=== PATIENT | female | born 1945 | race Two or more races ===

== ENCOUNTER 2023-09-04 18:51 | Inpatient (IN) | payer MEDICARE, OTHER ==
[~2023-09-04] VITALS: Ht 167.6 cm; Wt 47.6 kg
[2023-09-04 22:48] LABS: BASOPHILS % (AUTO) 0.4 % (0.0-2.0); EOSINOPHILS # (AUTO) 0.2 K/uL (0.0-0.7); EOSINOPHILS % (AUTO) 2.4 % (0.0-6.0); HEMATOCRIT 33 % (33-45); HEMOGLOBIN 10.8 g/dL (11.5-14.8); LYMPHOCYTES # (AUTO) 2.5 K/uL (0.8-4.8); MEAN CORPUSCULAR HEMOGLOBIN 34 PG (26.0-33.0); MEAN CORPUSCULAR HGB CONC 33 g/dl (31.0-36.0); MEAN CORPUSCULAR VOLUME 104 fL (82-100); MONOCYTES # (AUTO) 0.6 K/uL (0.1-1.30); MONOCYTES % (AUTO) 8.8 % (2.0-12.0); NEUTROPHILS # (AUTO) 3.3 K/uL (1.8-8.9); NEUTROPHILS % (AUTO) 50.4 % (43.0-81.0); PLATELET COUNT (AUTO) 230 K/uL (150-450); RED BLOOD CELL COUNT(AUTO) 3.19 MIL/uL (4.0-5.2); RED CELL DISTRIBUTION WIDTH 13.5 % (11.5-15.0); WHITE BLOOD COUNT (AUTO) 6.5 K/uL (4.3-11.0)
[2023-09-04 23:07] LABS: ALANINE AMINOTRANSFERASE 34 U/L (12-78); ALBUMIN 3.7 g/dL (3.4-5.0); ALCOHOL, BLOOD < 3 mg/dL (0-10); ALKALINE PHOSPHATASE 64 U/L (46-116); ASPARTATE AMINOTRANSFERASE 18 U/L (15-37); BILIRUBIN,DIRECT 0.1 mg/dL (0.0-0.2); BILIRUBIN,TOTAL 0.2 mg/dL (0.2-1.0); CALCIUM, SERUM 9.3 mg/dL (8.5-10.1); CARBON DIOXIDE 22 mmol/L (21-32); CHLORIDE 108 mmol/L (98-107); CREATININE 1.6 mg/dL (0.6-1.3); GLUCOSE 117 mg/dL (74-106); POTASSIUM 4.8 mmol/L (3.5-5.1); SODIUM SERUM 139 mmol/L (136-145); TOTAL PROTEIN, SERUM 7.9 g/dL (6.4-8.2); UREA NITROGEN, BLOOD 32 mg/dL (7-18)
[2023-09-04 23:09] LABS: ACETAMINOPHEN <10 ug/ml (10-30)
[2023-09-04] MEDS ORDERED: HALOPERIDOL LACTATE INJ 5 MG/ML VIAL ONE (23:29)
[2023-09-04 23:48] LABS: APPEARANCE,URINE CLEAR (CLEAR); BILIRUBIN,URINE NEGATIVE (NEGATIVE); BLOOD, URINE NEGATIVE Ery/uL (NEGATIVE); COLOR,URINE YELLOW (YELLOW); KETONES,URINE NEGATIVE (NEGATIVE); LEUKOCYTE ESTERASE ,URINE 1+ (NEGATIVE); NITRITE, URINE NEGATIVE (NEGATIVE); PH,URINE 5.5 (5.0-8.0); PROTEIN,URINE 1+ mg/dl (NEGATIVE); UGLUCOSE NEGATIVE (NEGATIVE); UROBILINOGEN,URINE 0.2 EU/dL (0.2)
[2023-09-05 00:07] LABS: AMPHETAMINE, URINE NEGATIVE (NEGATIVE); BARBITURATE, URINE NEGATIVE (NEGATIVE); BENZODIAZEPINE, URINE NEGATIVE (NEGATIVE); CANNABINOID, URINE NEGATIVE (NEGATIVE); COCCAINE, URINE NEGATIVE (NEGATIVE); OPIATE, URINE NEGATIVE (NEGATIVE); PHENCYCLIDINE SCREEN,URINE NEGATIVE (NEGATIVE)
[2023-09-05] MEDS: HALOPERIDOL LACTATE INJ 5 MG/ML VIAL IM ONE (00:22)
[2023-09-05 00:44] LABS: ADD URINE CULTURE YES; BACTERIA,URINE Rare /HPF (None Seen); RBC,URINE 0-2 /HPF (0-2); SQUAMOUS EPITHELIAL CELL,UR Rare /HPF (None Seen)
[2023-09-05] MEDS ORDERED: ZOLPIDEM TARTRATE 5 MG TABLET PO PRN (08:30)
[2023-09-05] MEDS ORDERED: MAGNESIUM HYDROXIDE 30 ML UDC PO PRN (08:30)
[2023-09-05] MEDS ORDERED: MAG HYDROX/AL HYDROX/SIMETH 30 ML UDC PO PRN (08:30)
[2023-09-05 08:44] VITALS: BP 116/71; TEMP 99.1; O2SAT 100
[2023-09-05] MEDS ORDERED: ACET650S11 RC (09:00)
[2023-09-05] MEDS ORDERED: MEGE40TA5 PO (09:00)
[2023-09-05] MEDS ORDERED: [UNRECOGNIZED DRUG - OTHER] PO (09:00)
[2023-09-05] MEDS ORDERED: METO25TA20 PO (09:00)
[2023-09-05] MEDS ORDERED: HYDR-4076 PO (09:00)
[2023-09-05] MEDS ORDERED: LISI20TA30 PO (09:00)
[2023-09-05] MEDS ORDERED: LORA2ORA SL (09:00)
[2023-09-05] MEDS ORDERED: QUET25TA PO (09:00)
[2023-09-05] MEDS ORDERED: IPRA3AMP23 IH (09:00)
[2023-09-05] MEDS ORDERED: BISA10SU11 RC (09:00)
[2023-09-05] MEDS ORDERED: TRIH2TAB3 PO (09:00)
[2023-09-05] MEDS ORDERED: ATRO2DRO4 SL (09:00)
[2023-09-05] MEDS ORDERED: ONDA4TAB11 SL (09:00)
[2023-09-05] MEDS: BLOOD SUGAR DIAGNOSTIC 1 EACH STRIP IN ONE (09:18)
[2023-09-05] MEDS: QUETIAPINE FUMARATE 25 MG TABLET PO SCH (12:11)
[2023-09-05] MEDS ORDERED: BISACODYL SUPP (10 MG) 10 MG/SUPP.RECT SUPP.RECT RC PRN (15:00)
[2023-09-05] MEDS ORDERED: ATROPINE SULFATE OPHTH SOLN 15 ML BOTTLE SL PRN (15:00)
[2023-09-05 16:00] VITALS: BP 119/76; TEMP 98.9; O2SAT 99
[2023-09-05] MEDS: MEGESTROL ACETATE 40 MG TABLET PO SCH (16:26)
[2023-09-05] MEDS: METOPROLOL TARTRATE 25 MG TABLET PO SCH (16:26)
[2023-09-05 20:00] VITALS: BP 121/74; TEMP 98.9; O2SAT 99
[2023-09-06 07:22] LABS: BASOPHILS % (AUTO) 0.8 % (0.0-2.0); EOSINOPHILS # (AUTO) 0.1 K/uL (0.0-0.7); EOSINOPHILS % (AUTO) 2.6 % (0.0-6.0); HEMATOCRIT 30 % (33-45); HEMOGLOBIN 10.1 g/dL (11.5-14.8); LYMPHOCYTES # (AUTO) 2.1 K/uL (0.8-4.8); LYMPHOCYTES % (AUTO) 41.1 % (20.0-44.0); MEAN CORPUSCULAR HEMOGLOBIN 34 PG (26.0-33.0); MEAN CORPUSCULAR HGB CONC 33 g/dl (31.0-36.0); MEAN CORPUSCULAR VOLUME 102 fL (82-100); MONOCYTES # (AUTO) 0.5 K/uL (0.1-1.30); NEUTROPHILS # (AUTO) 2.3 K/uL (1.8-8.9); NEUTROPHILS % (AUTO) 46.5 % (43.0-81.0); PLATELET COUNT (AUTO) 181 K/uL (150-450); RED BLOOD CELL COUNT(AUTO) 2.98 MIL/uL (4.0-5.2); RED CELL DISTRIBUTION WIDTH 12.8 % (11.5-15.0)
[2023-09-06 07:41] LABS: ALANINE AMINOTRANSFERASE 34 U/L (12-78); ALBUMIN 2.9 g/dL (3.4-5.0); ALKALINE PHOSPHATASE 51 U/L (46-116); ASPARTATE AMINOTRANSFERASE 24 U/L (15-37); BILIRUBIN,TOTAL 0.2 mg/dL (0.2-1.0); CALCIUM, SERUM 8.5 mg/dL (8.5-10.1); CARBON DIOXIDE 22 mmol/L (21-32); CHLORIDE 110 mmol/L (98-107); CREATININE 1.4 mg/dL (0.6-1.3); GLUCOSE 82 mg/dL (74-106); POTASSIUM 4.6 mmol/L (3.5-5.1); SODIUM SERUM 138 mmol/L (136-145); TOTAL PROTEIN, SERUM 6.5 g/dL (6.4-8.2); UREA NITROGEN, BLOOD 33 mg/dL (7-18)
[2023-09-06 07:45] LABS: CREATININE 1.5 mg/dL (0.6-1.3)
[2023-09-06 08:00] VITALS: BP 119/68; TEMP 98.6; O2SAT 100
[2023-09-06] MEDS: ENSURE ENLIVE 237 ML LIQUID (VANILLA) PO SCH (08:21)
[2023-09-06] MEDS: CEPHALEXIN MONOHYDRATE 250 MG CAPSULE PO SCH (12:02)
[2023-09-06 14:36] LABS: MAGNESIUM 1.9 mg/dL (1.8-2.4); PHOSPHORUS 3.3 mg/dL (2.5-4.9)
[2023-09-06 16:00] VITALS: BP 152/62; TEMP 98.4; O2SAT 99
[2023-09-06 21:29] VITALS: BP 140/77; TEMP 97.9; O2SAT 100
[2023-09-07 08:00] VITALS: BP 171/80; TEMP 98; O2SAT 99
[2023-09-07] MEDS: risperiDONE 1 MG TABLET PO SCH (10:00)
[2023-09-07] MEDS: OLANZAPINE 10 MG VIAL IM ONE (10:46)
[2023-09-07 16:00] VITALS: BP 128/56; TEMP 98.8; O2SAT 98
[2023-09-07 20:03] VITALS: BP 154/67; TEMP 98.4; O2SAT 98
[2023-09-08 00:06] LABS: PTH, INTACT 54 pg/mL (15-65)
[2023-09-08] MEDS: LORAZEPAM 1 MG TABLET PO PRN (03:36)
[2023-09-08 08:00] VITALS: BP 130/64; TEMP 97.8; O2SAT 98
[2023-09-08 08:09] LABS: *SPE A/G RATIO 0.9 (0.7-1.7); *SPE ALBUMIN 2.7 g/dL (2.9-4.4); *SPE ALPHA-1-GLOBULIN 0.2 g/dL (0.0-0.4); *SPE ALPHA-2-GLOBULIN 0.9 g/dL (0.4-1.0); *SPE BETA GLOBULIN 0.9 g/dL (0.7-1.3); *SPE GLOBULIN, TOTAL 3.1 g/dL (2.2-3.9); *SPE M-SPIKE Not Observed g/dL (Not Observed); *SPE PROTEIN TOTAL 5.8 g/dL (6.0-8.5); *SPEGAMMA GLOBULIN 1.1 g/dL (0.4-1.8)
[2023-09-08 16:00] VITALS: BP 121/70; TEMP 97.8; O2SAT 96
[2023-09-08 21:11] VITALS: BP 120/52; TEMP 98.4; O2SAT 100
[2023-09-09 08:00] VITALS: BP 129/66; TEMP 98.7; O2SAT 97
[2023-09-09] MEDS: risperiDONE 1 MG TABLET PO SCH (12:43)
[2023-09-09 16:00] VITALS: BP 127/74; TEMP 97.9; O2SAT 98
[2023-09-09 20:00] VITALS: BP 157/54; TEMP 97.7; O2SAT 100
[2023-09-10] MEDS: ACETAMINOPHEN 325 MG TABLET PO PRN (03:11)
[2023-09-10 08:00] VITALS: BP 148/70; TEMP 98; O2SAT 98
[2023-09-10 16:00] VITALS: BP 125/66; TEMP 98; O2SAT 98
[2023-09-11 08:00] VITALS: BP 127/54; TEMP 97.7; O2SAT 98
[2023-09-11] MEDS: PALIPERIDONE PALMITATE 234 MG/1.5 ML SYRINGE IM ONE (14:27)
[2023-09-11 16:00] VITALS: BP 134/79; TEMP 97.8; O2SAT 98
[2023-09-11 20:00] VITALS: BP 155/80; TEMP 98.3; O2SAT 100
[2023-09-12 08:00] VITALS: BP 134/90; TEMP 97.7; O2SAT 94
[2023-09-12 16:00] VITALS: BP 139/61; TEMP 97.8; O2SAT 99
[2023-09-12 20:00] VITALS: BP 129/91; TEMP 97.6; O2SAT 95
[2023-09-13 08:00] VITALS: BP 113/99; TEMP 97.6; O2SAT 96
[2023-09-13] MEDS: hydrALAZINE HCL 25 MG TABLET PO PRN (15:38)
[2023-09-13 16:00] VITALS: BP_SYST 150; BP_DIAS 62; BP_DIAS 69; TEMP 97.7; O2SAT 99
[2023-09-13 21:01] VITALS: BP 140/62; TEMP 97.9; O2SAT 96
[2023-09-14 08:00] VITALS: BP 145/70; TEMP 97.9; O2SAT 99
[2023-09-14 15:09] LABS: BASOPHILS % (AUTO) 0.3 % (0.0-2.0); EOSINOPHILS # (AUTO) 0.1 K/uL (0.0-0.7); EOSINOPHILS % (AUTO) 2.4 % (0.0-6.0); HEMATOCRIT 30 % (33-45); HEMOGLOBIN 10.2 g/dL (11.5-14.8); LYMPHOCYTES # (AUTO) 0.9 K/uL (0.8-4.8); LYMPHOCYTES % (AUTO) 19.3 % (20.0-44.0); MEAN CORPUSCULAR HEMOGLOBIN 34 PG (26.0-33.0); MEAN CORPUSCULAR HGB CONC 34 g/dl (31.0-36.0); MEAN CORPUSCULAR VOLUME 101 fL (82-100); MONOCYTES # (AUTO) 0.5 K/uL (0.1-1.30); MONOCYTES % (AUTO) 11.2 % (2.0-12.0); NEUTROPHILS # (AUTO) 3.2 K/uL (1.8-8.9); NEUTROPHILS % (AUTO) 66.8 % (43.0-81.0); PLATELET COUNT (AUTO) 214 K/uL (150-450); RED BLOOD CELL COUNT(AUTO) 2.98 MIL/uL (4.0-5.2); RED CELL DISTRIBUTION WIDTH 12.9 % (11.5-15.0); WHITE BLOOD COUNT (AUTO) 4.9 K/uL (4.3-11.0)
[2023-09-14 15:22] LABS: CALCIUM, SERUM 8.8 mg/dL (8.5-10.1); CARBON DIOXIDE 25 mmol/L (21-32); CHLORIDE 105 mmol/L (98-107); CREATININE 1.3 mg/dL (0.6-1.3); GLUCOSE 142 mg/dL (74-106); PHOSPHORUS 4.1 mg/dL (2.5-4.9); POTASSIUM 4.6 mmol/L (3.5-5.1); SODIUM SERUM 136 mmol/L (136-145); UREA NITROGEN, BLOOD 30 mg/dL (7-18)
[2023-09-14 16:00] VITALS: BP 162/78; TEMP 98.6; O2SAT 100
[2023-09-14 21:48] VITALS: BP_SYST 140; BP_SYST 146; BP_DIAS 55; BP_DIAS 63; TEMP 98.6; O2SAT 100
[2023-09-15 08:00] VITALS: BP 134/54; TEMP 98.1; O2SAT 100
[2023-09-15 16:00] VITALS: BP 127/76; TEMP 98.1; O2SAT 98
[2023-09-16 16:00] VITALS: BP 134/59; TEMP 98; O2SAT 100
[2023-09-16 20:34] VITALS: BP 106/89; TEMP 98.6; O2SAT 98
[2023-09-17 08:00] VITALS: BP 122/68; TEMP 97.7; O2SAT 100
[2023-09-17 16:00] VITALS: BP 139/99; TEMP 97.9; O2SAT 100
[2023-09-17] MEDS: TRIHEXYPHENIDYL HCL 5 MG TABLET PO SCH (17:00)
[2023-09-17 20:00] VITALS: BP 140/111; TEMP 98; O2SAT 100
[2023-09-18 08:00] VITALS: BP 136/63; TEMP 98.6; O2SAT 98
[2023-09-18] MEDS: PALIPERIDONE PALMITATE 156 MG/ML SYRINGE IM ONE (10:45)
[2023-09-18 16:00] VITALS: BP 117/74; TEMP 98; O2SAT 98
[2023-09-18 20:00] VITALS: BP 137/81; TEMP 98.2; O2SAT 98
[2023-09-19 08:00] VITALS: BP 120/90; TEMP 98.1; O2SAT 98
[2023-09-19 16:00] VITALS: BP 135/60; TEMP 98.8; O2SAT 100
[2023-09-19 20:00] VITALS: BP 107/66; TEMP 98.3; O2SAT 100
[2023-09-20 08:00] VITALS: BP 146/59; TEMP 98.6; O2SAT 99
[2023-09-20 16:00] VITALS: BP 130/52; TEMP 98.4; O2SAT 97
[2023-09-20 20:50] VITALS: BP 107/56; TEMP 98.6; O2SAT 100
[2023-09-21 08:00] VITALS: BP 151/66; TEMP 98.2; O2SAT 95
[2023-09-21 08:50] VITALS: BP 151/66
[2023-10-17] MEDS ORDERED: PALIPERIDONE PALMITATE 156 MG/ML SYRINGE IM SCH (09:00)
== END 2023-09-21 13:45 | DRG 885 ==
LOC: ER 19:04 → GPS 09-05 07:51
PROVIDERS: ADMIT Psychiatry & Neurology Psychiatry; ATTEND Nurse Practitioner Acute Care
DX: F20.0 Paranoid schizophrenia (principal); N17.0 Acute kidney failure with tubular necrosis; G93.41 Metabolic encephalopathy; N39.0 Urinary tract infection, site not specified; E44.0 Moderate protein-calorie malnutrition; R64 Cachexia; Z68.1 Body mass index [BMI] 19.9 or less, adult; F03.918 Unspecified dementia, unspecified severity, with other behavioral disturbance; F03.93 Unspecified dementia, unspecified severity, with mood disturbance; F29 Unspecified psychosis not due to a substance or known physiological condition; I10 Essential (primary) hypertension; D64.9 Anemia, unspecified; E16.2 Hypoglycemia, unspecified; F60.9 Personality disorder, unspecified; E88.09 Other disorders of plasma-protein metabolism, not elsewhere classified; Z20.822 Contact with and (suspected) exposure to COVID-19; F31.9 Bipolar disorder, unspecified; Z73.6 Limitation of activities due to disability; F39 Unspecified mood [affective] disorder; R63.0 Anorexia; J44.89 Other specified chronic obstructive pulmonary disease
CPT/HCPCS: 36415; 80048-TC; 80053-TC; 80061-TC; 80076-TC; 81001; 82550-TC; 82565-TC; 82962-TC; 83735-TC; 83970; 84100-TC; 84155; 84165; 85025-TC; 87081-TC; 87086-TC; 97112-TC; 97116-TC; 97530-TC; G0480; J1630; J2426; J3490